=== PATIENT | female | born 1985 | race Caucasian/White ===

== ENCOUNTER 2017-01-08 23:56 | Emergency (ER) | payer MEDICAID ==
[~2017-01-08] VITALS: Ht 154.9 cm; Wt 59.0 kg
[2017-01-09 00:27] VITALS: Ht 154.9 cm; Wt 59.0 kg
--- NOTE | 2017-01-09 05:05 | ERD ---
ER Documentation Chief Complaint Chief Complaint leg calf cramp like pain x4 days HPI 31-year-old female presents here in emergency department for complaints of left lower leg cramps for 4 days now. Patient describes the pain as throbbing pain, 6/10 scale, worse upon touching the area. Patient denies any redness. Patient denies any fever or chills. Patient gave to 15 days ago ROS All systems reviewed and are negative except as per history of present illness. Medications Home Meds Reported Medications [none] Unknown Strength No Conflict Check 01/09/17 Allergies Allergies: Coded Allergies: No Known Allergy (Unverified , 01/09/17) PMhx/Soc Medical and Surgical Hx: pt denies Medical Hx, pt denies Surgical Hx Hx Alcohol Use: No Hx Substance Use: No Hx Tobacco Use: No Smoking Status: Never smoker FmHx Family History: No coronary disease, No diabetes, No other Physical Exam Vitals Vital Signs Date Time Temp Pulse Resp B/P Pulse Ox O2 Delivery O2 Flow Rate FiO2 01/09/17 00:27 99.0 77 18 127/75 100 Physical Exam GENERAL: The patient is well developed and appropriate for usual state of health, in no apparent distress. CHEST: Clear to auscultation bilaterally. There are no rales, wheezes or rhonchi. HEART: Regular rate and rhythm. No murmurs, clicks, rubs or gallops. No S3 or S4. ABDOMEN: Soft, nontender and nondistended. Good bowel sounds. No rebound or guarding. No gross peritonitis. No gross organomegaly or masses. No Holloway sign or McBurney point tenderness. BACK: No midline or flank tenderness. EXTREMITIES: No redness or swelling noted in the left lower leg, negative Romberg sign. Equal pulses bilaterally. There is no peripheral clubbing, cyanosis or edema. No focal swelling or erythema. Full range of motion. Grossly neurovascularly intact. NEURO: Alert and oriented. Cranial nerves 2-12 intact. Motor strength in all 4 extremities with 5/5 strength. Sensation grossly intact. Normal speech and gait. SKIN: There is no apparent rash or petechia. The skin is warm and dry. HEMATOLOGIC AND LYMPHATIC: There is no evidence of excessive bruising or lymphedema. No gross cervical, axillary, or inguinal lymphadenopathy. Results 24 hrs PROCEDURE: US left lower extremity venous Doppler CLINICAL INDICATION: Left leg pain. TECHNIQUE: Multiple sonographic images of the left lower extremity deep venous system was obtained utilizing grayscale, color-flow, compressive sonography and Doppler imaging with augmentation. COMPARISON: There are no similar studies submitted for comparison. FINDINGS: There is normal compressibility and flow within the left common femoral, superficial femoral, popliteal, and peroneal veins. IMPRESSION: No sonographic evidence for left leg deep venous thrombosis. RPTAT: HVF .Ariel Altamirano MD, MD Date Time Electronically viewed and signed by .Ariel Altamirano MD, MD on 01/09/2017 05:36 .F/ CC: RED SOTO [employer] TRANSLATOR Procedures/MDM Medical Decision Making: Patient's pain is most likely consistent with a muscle strain. There is no suspicion for neurovascular compromise. Patient has intact sensation and circulation of the affected extremity. There is low suspicion for septic arthritis. Patient does not have any fever. Ultrasound does not show any DVT. Disposition: Home. Patient is given prescription for ibuprofen for pain, flexeril for muscle spasms, norco for severe pain. Patient was advised to elevate the affected area and apply ice on affected area. Patient was advised that if symptoms are worse, numbness, tingling, high fever, unable to move joint , worsening symptoms, to return to emergency department immediately. Otherwise, patient is advised to follow up with the primary care doctor in 5-7 days for reevaluation of symptoms. Disclaimer: Inadvertent spelling and grammatical errors are likely due to EHR/ dictation software use and do not reflect on the overall quality of patient care. Also, please note that the electronic time recorded on this note does not necessarily reflect the actual time of the patient encounter. Departure Diagnosis: Primary Impression: Leg cramping Condition: Stable Patient Instructions: Muscle Strain, Extremity Additional Instructions: Patient is given prescription for ibuprofen for pain, flexeril for muscle spasms , norco for severe pain. Patient was advised to elevate the affected area and apply ice on affected area. Patient was advised that if symptoms are worse, numbness, tingling, high fever, unable to move joint, worsening symptoms, to return to emergency department immediately. Otherwise, patient is advised to follow up with the primary care doctor in 5-7 days for reevaluation of symptoms. RED SOTO NP Jan 09, 2017 05:05
--- NOTE | 2017-01-09 05:36 | RADRPT ---
PROCEDURE: US left lower extremity venous Doppler CLINICAL INDICATION: Left leg pain. TECHNIQUE: Multiple sonographic images of the left lower extremity deep venous system was obtained utilizing grayscale, color-flow, compressive sonography and Doppler imaging with augmentation. COMPARISON: There are no similar studies submitted for comparison. FINDINGS: There is normal compressibility and flow within the left common femoral, superficial femoral, poplit eal, and peroneal veins. IMPRESSION: No sonographic evidence for left leg deep venous thrombosis. RPTAT: HVF .Ariel Altamirano MD, MD Date Time Electronically viewed and signed by .Ariel Altamirano MD, MD on 01/09/2017 05:36 .F/
[2017-01-09] MEDS ORDERED: CYCL-319 PO (05:48)
[2017-01-09] MEDS ORDERED: IBUP-1542 PO (05:48)
[2017-01-09] MEDS ORDERED: HYDR-906 PO (05:48)
== END 2017-01-09 06:00 | disposition home or self-care (01) ==
LOC: FTE 23:56
DX: M79.662 Pain in left lower leg (principal)
CPT/HCPCS: 93971; Z7502